=== PATIENT | male | born 2000 | race Caucasian/White ===

== ENCOUNTER → 2018-01-27 | Outpatient (REF) | payer BC ==
[~2018-01-27] MED LIST: HYDR-385 PO
[2018-01-27 19:49] LABS: PLATELET COUNT, AUTOMATED 205 K/uL (150-450)
== END ==
PROVIDERS: ATTEND Nurse Practitioner Family
DX: R50.9 Fever, unspecified (principal)
CPT/HCPCS: 82040; 82247; 82310; 82374; 82435; 82565; 82947; 84075; 84132; 84155; 84295; 84450; 84460; 84520; 85025

== ENCOUNTER 2018-02-06 20:24 | Emergency (ER) | payer BC ==
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
[2018-02-06 20:58] VITALS: BP 106/67
[2018-02-06] MEDS ORDERED: TRIAMCINOLONE ACE 0.1% CR 15GM TP ONE (21:05)
== END 2018-02-06 21:18 | disposition home or self-care (01) ==
LOC: ER 20:55
DX: L30.9 Dermatitis, unspecified (principal)
CPT/HCPCS: 99281

== ENCOUNTER 2018-02-10 16:59 | Emergency (ER) | payer BC ==
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
[2018-02-10 17:30] VITALS: BP 108/71
[2018-02-10] MEDS ORDERED: PRED20TA6 PO (17:32)
== END 2018-02-10 17:42 | disposition home or self-care (01) ==
LOC: ER 17:08
DX: L24.9 Irritant contact dermatitis, unspecified cause (principal)
CPT/HCPCS: 99281